=== PATIENT | female | born 1950 | race Hispanic/Latino ===

== ENCOUNTER 2018-04-01 09:25 | Inpatient (IN) | payer MEDICARE ==
[~2018-04-01] VITALS: Ht 152.4 cm; Wt 101.7 kg
[2018-04-01] MEDS ORDERED: SODIUM CHLORIDE 0.9% 1000ML 1,000 ML IV ONE ×2 (09:55→11:30)
[2018-04-01 10:00] LABS: BASOPHILS % (AUTO) 0.1 % (0.0-5.0); HEMATOCRIT 39.2 % (36-48); LYMPHOCYTES % (AUTO) 4.2 % (21.0-51.0); MEAN CORPUSCULAR HEMOGLOBIN 28.9 pg (27.0-33.0); MEAN CORPUSCULAR HGB CONC 33.7 g/dL (32.0-36.0); MEAN CORPUSCULAR VOLUME 85.8 fL (79-99); NEUTROPHILS % (AUTO) 92.7 % (40.0-77.0); PLATELET COUNT (AUTO) 211 K/uL (130-400); RED BLOOD CELL COUNT(AUTO) 4.57 MIL/uL (4.00-5.50); RED CELL DISTRIBUTION WIDTH 14.7 % (11.0-15.5); WHITE BLOOD COUNT (AUTO) 15.9 K/uL (4.8-10.8)
[2018-04-01 10:03] LABS: APPEARANCE,URINE Clear (CLEAR); BILIRUBIN,URINE Small (NEGATIVE); COLOR,URINE Dark Yellow (YELLOW); GLUCOSE, URINE (UA) >=1000 mg/dL (NEGATIVE); KETONES,URINE 40 mg/dL (NEGATIVE); LEUKOCYTE ESTERASE ,URINE Negative (NEGATIVE); NITRATE,URINE Positive (NEGATIVE); OCCULT BLOOD,URINE Negative (NEGATIVE); PROTEIN,URINE Trace (NEGATIVE)
[2018-04-01 10:10] LABS: CREATININE 1.1 mg/dL (0.5-1.5)
[2018-04-01 10:19] LABS: ALBUMIN 3.3 g/dL (3.5-5.0); BILIRUBIN,TOTAL 2.6 mg/dL (0.2-1.0); TOTAL PROTEIN, SERUM 7.9 g/dL (6.0-8.3)
[2018-04-01 10:20] LABS: BACTERIA,URINE Many /HPF (None Seen); SQUAMOUS EPITHELIAL CELL,UR Rare /HPF (0-2); WBC,URINE 0-1 /HPF (0-1)
[2018-04-01] MEDS ORDERED: MORPHINE SULFATE 4 MG/1ML SYG ONE (11:12)
[2018-04-01] MEDS ORDERED: ONDANSETRON HCL 4 MG/2 ML VIAL ONE (11:12)
[2018-04-01] MEDS ORDERED: INSULIN HUMULIN R 100 UNIT/ML 3ML ONE (11:31)
[2018-04-01] MEDS ORDERED: ACETAMINOPHEN 650 MG SUPPOSITORY RC PRN (12:00)
[2018-04-01] MEDS ORDERED: ONDANSETRON HCL 4 MG/2 ML VIAL IVP PRN (12:00)
[2018-04-01] MEDS ORDERED: MORPHINE SULFATE 2 MG/ML 1ML SYG IVP PRN (12:00)
[2018-04-01 12:02] LABS: CHOLESTEROL 148 mg/dL (<200); HDL CHOLESTEROL 29 mg/dL (35-85); LDL DIRECT 38 mg/dL (0-99); TRIGLYCERIDES 82 mg/dL (30-200)
[2018-04-01 12:39] VITALS: BP 163/71
[2018-04-01] MEDS ORDERED: DEXTROSE 5 %-0.45 % NACL 1,000 ML IV SCH (13:00)
[2018-04-01] MEDS ORDERED: INSU200I4 SQ (13:09)
[2018-04-01] MEDS ORDERED: ATOR20TA65 PO (13:09)
[2018-04-01] MEDS ORDERED: INSNOV SQ (13:09)
[2018-04-01] MEDS ORDERED: EXEN2PEN SQ (13:09)
[2018-04-01] MEDS: METOCLOPRAMIDE 10 MG/2 ML VIAL IVP PRN (13:23)
[2018-04-01] MEDS: PROCALAMINE IV SOLUTION 1,000 ML IV SCH (13:40)
[2018-04-01] MEDS ORDERED: DEXTROSE 50%-WATER 50 ML DISP.SYRIN IV PRN (16:15)
[2018-04-01] MEDS ORDERED: GLUCAGON 1MG KIT 1 MG ML IM PRN (16:15)
[2018-04-01] MEDS ORDERED: HYDRALAZINE HCL 20 MG/ML VIAL IV PRN (16:15)
[2018-04-01] MEDS ORDERED: ACETAMINOPHEN 325 MG TAB PO PRN (16:15)
[2018-04-01 16:30] VITALS: BP 150/59
[2018-04-01] MEDS: INSULIN HUMULIN R 100 UNIT/ML 3ML SQ SCH ×3 (16:30→23:30)
[2018-04-01] MEDS: ZOSYN 3.375GM+NS 50ML 50 ML IV SCH ×2 (18:50→23:24)
[2018-04-01] MEDS: PANTOPRAZOLE SODIUM 40 MG TABLET.DR PO SCH (18:51)
[2018-04-01] MEDS: ENOXAPARIN SODIUM 40 MG/0.4 ML SYRINGE SQ SCH (18:51)
[2018-04-01 20:04] VITALS: BP 147/50
[2018-04-02] VITALS (20 sets, daily range): BP systolic 119–155; BP diastolic 50–77
[2018-04-02] MEDS: PROCALAMINE IV SOLUTION 1,000 ML IV SCH (03:13)
[2018-04-02 05:08] LABS: HEMATOCRIT 34.4 % (36-48); MEAN CORPUSCULAR HEMOGLOBIN 28.7 pg (27.0-33.0); MEAN CORPUSCULAR HGB CONC 33.5 g/dL (32.0-36.0); MEAN CORPUSCULAR VOLUME 85.5 fL (79-99); PLATELET COUNT (AUTO) 177 K/uL (130-400); RED BLOOD CELL COUNT(AUTO) 4.02 MIL/uL (4.00-5.50); RED CELL DISTRIBUTION WIDTH 14.3 % (11.0-15.5); WHITE BLOOD COUNT (AUTO) 11.6 K/uL (4.8-10.8)
[2018-04-02 05:17] LABS: BAND NEUTROPHILS % (MANUAL) 9 % (0-2); BASOPHILS % (MANUAL) 3 % (0-2); LYMPHOCYTES % (MANUAL) 6 % (22-44); MONOCYTES % (MANUAL) 7 % (2-9); SEGMENTED NEUTROPHILS % 75 % (40-70)
[2018-04-02 05:18] LABS: MAN.DIFF COMMENT-IMPRESSION MANUAL DIFFERENTIAL; PLATELET MORPHOLOGY COMMENT ADEQUATE
[2018-04-02 05:27] LABS: ALBUMIN 2.6 g/dL (3.5-5.0); BILIRUBIN,DIRECT 0.4 mg/dL (0.0-0.3); BILIRUBIN,TOTAL 1.3 mg/dL (0.2-1.0); CREATININE 0.9 mg/dL (0.5-1.5); POTASSIUM 4.3 mmol/L (3.5-5.1); TOTAL PROTEIN, SERUM 6.7 g/dL (6.0-8.3)
[2018-04-02] MEDS: INSULIN HUMULIN R 100 UNIT/ML 3ML SQ SCH ×4 (07:06→21:25)
[2018-04-02] MEDS: ZOSYN 3.375GM+NS 50ML 50 ML IV SCH ×2 (08:27→17:09)
[2018-04-02] MEDS: ENOXAPARIN SODIUM 40 MG/0.4 ML SYRINGE SQ SCH (08:28)
[2018-04-02] MEDS ORDERED: PROPOFOL 10 MG/ML 20ML VIAL IV ONE (08:49)
[2018-04-02] MEDS: PANTOPRAZOLE SODIUM 40 MG TABLET.DR PO SCH (12:31)
[2018-04-02] MEDS: METOCLOPRAMIDE 10 MG/2 ML VIAL IVP PRN (12:31)
[2018-04-02] MEDS ORDERED: LACTATED RINGERS 1000ML 1,000 ML IV ONE (16:54)
[2018-04-02] MEDS: LACTATED RINGERS 1000ML 1,000 ML IV SCH (21:00)
[2018-04-03] VITALS (12 sets, daily range): BP systolic 132–175; BP diastolic 55–87
[2018-04-03] MEDS: ZOSYN 3.375GM+NS 50ML 50 ML IV SCH ×3 (00:04→16:46)
[2018-04-03 04:47] LABS: HEMATOCRIT 36.2 % (36-48); MEAN CORPUSCULAR HEMOGLOBIN 29.3 pg (27.0-33.0); MEAN CORPUSCULAR VOLUME 86.3 fL (79-99); PLATELET COUNT (AUTO) 150 K/uL (130-400); RED BLOOD CELL COUNT(AUTO) 4.19 MIL/uL (4.00-5.50); RED CELL DISTRIBUTION WIDTH 14.1 % (11.0-15.5); WHITE BLOOD COUNT (AUTO) 9.2 K/uL (4.8-10.8)
[2018-04-03 05:35] LABS: ALBUMIN 2.6 g/dL (3.5-5.0); BILIRUBIN,TOTAL 0.7 mg/dL (0.2-1.0); CREATININE 0.8 mg/dL (0.5-1.5); MAGNESIUM 1.8 mg/dL (1.80-2.40); POTASSIUM 4.4 mmol/L (3.5-5.1); TOTAL PROTEIN, SERUM 6.9 g/dL (6.0-8.3)
[2018-04-03] MEDS: INSULIN HUMULIN R 100 UNIT/ML 3ML SQ SCH ×4 (07:30→21:31)
[2018-04-03] MEDS: PANTOPRAZOLE SODIUM 40 MG TABLET.DR PO SCH (09:00)
[2018-04-03] MEDS: ENOXAPARIN SODIUM 40 MG/0.4 ML SYRINGE SQ SCH (09:00)
[2018-04-03] MEDS: LACTATED RINGERS 1000ML 1,000 ML IV SCH ×3 (10:20→20:31)
[2018-04-04] VITALS (27 sets, daily range): BP systolic 115–167; BP diastolic 51–83
[2018-04-04] MEDS: ZOSYN 3.375GM+NS 50ML 50 ML IV SCH ×4 (00:22→21:19)
[2018-04-04 04:47] LABS: HEMATOCRIT 31.4 % (36-48); MEAN CORPUSCULAR HEMOGLOBIN 28.7 pg (27.0-33.0); MEAN CORPUSCULAR HGB CONC 33.4 g/dL (32.0-36.0); MEAN CORPUSCULAR VOLUME 85.8 fL (79-99); PLATELET COUNT (AUTO) 160 K/uL (130-400); RED BLOOD CELL COUNT(AUTO) 3.66 MIL/uL (4.00-5.50); RED CELL DISTRIBUTION WIDTH 14.1 % (11.0-15.5); WHITE BLOOD COUNT (AUTO) 7.8 K/uL (4.8-10.8)
[2018-04-04 04:59] LABS: ALBUMIN 2.4 g/dL (3.5-5.0); BILIRUBIN,TOTAL 0.5 mg/dL (0.2-1.0); CREATININE 0.7 mg/dL (0.5-1.5); POTASSIUM 3.4 mmol/L (3.5-5.1); TOTAL PROTEIN, SERUM 6.4 g/dL (6.0-8.3)
[2018-04-04] MEDS: INSULIN HUMULIN R 100 UNIT/ML 3ML SQ SCH ×4 (05:56→21:00)
[2018-04-04] MEDS ORDERED: POTASSIUM CHLORIDE 10% ELIXIR 20 MEQ/15 ML UDCUP PO PRN (06:30)
[2018-04-04] MEDS ORDERED: POTASSIUM CHLORIDE 20MEQ/100ML 100 ML IV PRN (06:30)
[2018-04-04] MEDS ORDERED: LIDOCAINE HCL-MPF 1% 2ML VIAL IVP PRN (06:30)
[2018-04-04] MEDS ORDERED: POTASSIUM CHLORIDE 20 MEQ ERTAB PO PRN (06:30)
[2018-04-04] MEDS ORDERED: ONDANSETRON HCL MDV 20ML 2 MG/ML VIAL ONE (07:20)
[2018-04-04] MEDS ORDERED: LIDOCAINE PF 2% 5ML ABBOJECT ONE (07:20)
[2018-04-04] MEDS ORDERED: FENTANYL CITRATE PF 50 MCG/1 ML 2ML VIAL ONE (07:21)
[2018-04-04] MEDS ORDERED: ROCURONIUM BROMIDE 10MG/1ML 5ML VL ONE (07:21)
[2018-04-04] MEDS ORDERED: PROPOFOL 10 MG/ML 20ML VIAL IV ONE (07:22)
[2018-04-04] MEDS ORDERED: MIDAZOLAM HCL 1 MG/ML 2ML VIAL ONE (07:22)
[2018-04-04] MEDS ORDERED: SODIUM CHLORIDE 0.9% 1000ML 1,000 ML IV ONE (07:26)
[2018-04-04] MEDS ORDERED: BUPIVACAINE/PF 0.5% 30ML VIAL ONE (08:27)
[2018-04-04] MEDS ORDERED: ESMOLOL HCL 10 MG/ML 10 ML VIAL ONE (08:47)
[2018-04-04] MEDS ORDERED: KETOROLAC TROMETHAMINE 30MG/ML ONE (08:47)
[2018-04-04] MEDS: PANTOPRAZOLE SODIUM 40 MG TABLET.DR PO SCH (09:00)
[2018-04-04] MEDS: ENOXAPARIN SODIUM 40 MG/0.4 ML SYRINGE SQ SCH (09:00)
[2018-04-04] MEDS ORDERED: MORPHINE SULFATE 4 MG/1ML SYG IM PRN (09:15)
[2018-04-04] MEDS: LACTATED RINGERS 1000ML 1,000 ML IV SCH ×2 (10:39→22:30)
[2018-04-05] VITALS: BP 138/62
[2018-04-05 04:00] VITALS: BP 156/82
[2018-04-05 05:35] LABS: BASOPHILS % (AUTO) 0.5 % (0.0-5.0); EOSINOPHILS % (AUTO) 2.3 % (0.0-8.0); HEMATOCRIT 33.2 % (36-48); MEAN CORPUSCULAR HEMOGLOBIN 29.8 pg (27.0-33.0); MEAN CORPUSCULAR HGB CONC 34.5 g/dL (32.0-36.0); MEAN CORPUSCULAR VOLUME 86.4 fL (79-99); MONOCYTES % (AUTO) 5.4 % (3.0-13.0); NEUTROPHILS % (AUTO) 61.8 % (40.0-77.0); NUCLEATED RED BLOOD CELLS 0.1 % (0.0-0.19); PLATELET COUNT (AUTO) 181 K/uL (130-400); RED BLOOD CELL COUNT(AUTO) 3.85 MIL/uL (4.00-5.50); RED CELL DISTRIBUTION WIDTH 14.1 % (11.0-15.5); WHITE BLOOD COUNT (AUTO) 6.9 K/uL (4.8-10.8)
[2018-04-05 05:49] LABS: ALBUMIN 2.4 g/dL (3.5-5.0); BILIRUBIN,TOTAL 0.5 mg/dL (0.2-1.0); CREATININE 0.8 mg/dL (0.5-1.5); TOTAL PROTEIN, SERUM 6.5 g/dL (6.0-8.3)
[2018-04-05] MEDS: ZOSYN 3.375GM+NS 50ML 50 ML IV SCH ×2 (05:49→12:36)
[2018-04-05] MEDS: INSULIN HUMULIN R 100 UNIT/ML 3ML SQ SCH ×2 (06:31→12:45)
[2018-04-05 08:00] VITALS: BP 152/47
[2018-04-05] MEDS: PANTOPRAZOLE SODIUM 40 MG TABLET.DR PO SCH (08:34)
[2018-04-05] MEDS: ENOXAPARIN SODIUM 40 MG/0.4 ML SYRINGE SQ SCH (08:35)
[2018-04-05 12:00] VITALS: BP 170/62
[2018-04-05] MEDS ORDERED: TYL3 PO (15:08)
== END 2018-04-05 18:05 | disposition home or self-care (01) | DRG 418 ==
LOC: EDH 09:25 → EDHIP 11:37 → 4BH 11:52 → 3BH 04-04 17:24
PROVIDERS: ADMIT Internal Medicine Nephrology; ATTEND Internal Medicine Nephrology
PROC: 0DJ08ZZ Inspection of Upper Intestinal Tract, Via Natural or Artificial Opening Endoscopic (ICD-10-PCS; 2018-04-02)
PROC: 5A09357 Assistance with Respiratory Ventilation, Less than 24 Consecutive Hours, Continuous Positive Airway Pressure (ICD-10-PCS; 2018-04-02)
PROC: 0FT44ZZ Resection of Gallbladder, Percutaneous Endoscopic Approach (ICD-10-PCS; principal; 2018-04-04 08:09)
DX: K85.10 Biliary acute pancreatitis without necrosis or infection (principal); N39.0 Urinary tract infection, site not specified; E44.0 Moderate protein-calorie malnutrition; Z68.41 Body mass index [BMI] 40.0-44.9, adult; E11.9 Type 2 diabetes mellitus without complications; E66.01 Morbid (severe) obesity due to excess calories; K80.20 Calculus of gallbladder without cholecystitis without obstruction; E78.5 Hyperlipidemia, unspecified; G47.33 Obstructive sleep apnea (adult) (pediatric); I10 Essential (primary) hypertension; Z82.49 Family history of ischemic heart disease and other diseases of the circulatory system
CPT/HCPCS: 36415; 43231; 72100; 74176; 76705; 80048; 80053; 80061; 80076; 81001; 82150; 82948; 83690; 83735; 85025; 85027; 87088; 87186; 88304; J1650; J1815; J1885; J2001; J2250; J2270; J2405; J2543; J2704; J2765; J3010; J3480; J3490; J7030; J7042; J7120

== ENCOUNTER 2022-08-24 08:23 | Emergency (ER) | payer OTHER, MEDICARE ==
[~2022-08-24] VITALS: Ht 149.9 cm; Wt 93.9 kg
[~2022-08-24 08:23] MED LIST: ATOR20TA65 PO; EXEN2PEN SQ; INSNOV SQ; INSU200I4 SQ; TYL3 PO
[2022-08-24] MEDS ORDERED: IBUPROFEN 800 MG TAB PO SCH (09:30)
[2022-08-24 09:33] LABS: BASOPHILS % (AUTO) 0.7 % (0.0-5.0); EOSINOPHILS % (AUTO) 1.6 % (0.0-8.0); HEMATOCRIT 36.2 % (36-48); LYMPHOCYTES % (AUTO) 22.5 % (21.0-51.0); MEAN CORPUSCULAR HEMOGLOBIN 27.7 pg (27.0-33.0); MEAN CORPUSCULAR VOLUME 86.4 fL (79-99); MONOCYTES % (AUTO) 6.9 % (3.0-13.0); PLATELET COUNT (AUTO) 275 K/uL (130-400); RED BLOOD CELL COUNT(AUTO) 4.19 MIL/uL (4.00-5.50); RED CELL DISTRIBUTION WIDTH 12.8 % (11.0-15.5); WHITE BLOOD COUNT (AUTO) 9.9 K/uL (4.8-10.8)
[2022-08-24 09:34] LABS: APPEARANCE,URINE CLOUDY (CLEAR); BILIRUBIN,URINE NEGATIVE (NEGATIVE); COLOR,URINE YELLOW (YELLOW); GLUCOSE, URINE (UA) NEGATIVE (NEGATIVE); KETONES,URINE NEGATIVE (NEGATIVE); LEUKOCYTE ESTERASE ,URINE 500 Leu/uL (NEGATIVE); NITRATE,URINE 2+ (NEGATIVE); OCCULT BLOOD,URINE NEGATIVE (NEGATIVE); PH,URINE 5.5 (5.0-8.0); PROTEIN,URINE 20 mg/dL (NEGATIVE); UROBILINOGEN,URINE 0.2 mg/dL (0.2-1.0)
[2022-08-24 09:58] LABS: CREATININE 1.1 mg/dL (0.5-1.5)
[2022-08-24 10:03] LABS: ALBUMIN 2.5 g/dL (3.5-5.0); TOTAL PROTEIN, SERUM 7.7 g/dL (6.0-8.3)
[2022-08-24] MEDS ORDERED: IBUPROFEN 800 MG TAB ONE (10:16)
[2022-08-24 10:41] LABS: BACTERIA,URINE MANY /HPF (None Seen); MUCUS,URINE RARE LPF (None Seen); SQUAMOUS EPITHELIAL CELL,UR MOD /HPF (0-2); WBC,URINE 51-100 /HPF (0-1)
[2022-08-24 11:00] VITALS: BP 131/59
[2022-08-24] MEDS ORDERED: MACR100 PO (11:05)
[2022-08-24] MEDS ORDERED: NEOM28.36 TP (11:05)
[2022-08-24] MEDS ORDERED: FLUC150T PO (11:05)
== END 2022-08-24 11:40 | disposition home or self-care (01) ==
LOC: EDH 08:23
DX: S00.31XA Abrasion of nose, initial encounter (principal); J06.9 Acute upper respiratory infection, unspecified; N39.0 Urinary tract infection, site not specified; L30.9 Dermatitis, unspecified; B37.9 Candidiasis, unspecified; Z20.822 Contact with and (suspected) exposure to COVID-19; E11.9 Type 2 diabetes mellitus without complications; E78.00 Pure hypercholesterolemia, unspecified; I10 Essential (primary) hypertension; Z90.49 Acquired absence of other specified parts of digestive tract; Z98.890 Other specified postprocedural states; Z79.899 Other long term (current) drug therapy; Z79.4 Long term (current) use of insulin; X58.XXXA Exposure to other specified factors, initial encounter; Y93.89 Activity, other specified; Y92.89 Other specified places as the place of occurrence of the external cause; Y99.8 Other external cause status
CPT/HCPCS: 99283; 87635; 80053; 85025; 87077; 87088; 87186; 87804 ×2; 81001; 36415; C9803

== ENCOUNTER 2024-09-08 22:10 | Emergency (ER) | payer OTHER, MEDICARE ==
[~2024-09-08] VITALS: Ht 149.9 cm; Wt 103.0 kg
[~2024-09-08 22:10] MED LIST changes: +FLUC150T PO; +MACR100 PO; +NEOM28.36 TP
--- NOTE | 2024-09-08 23:13 | HMCIMG ---
CT LUMBAR SPINE W/O CONTRAST HISTORY: Status post fall COMPARISON: None TECHNIQUE: Multiple sequential axial images of the lumbar spine were obtained including post processing sagittal and coronal reconstruction images. Patient was not given contrast through intravenous route. FINDINGS: There is grade 1 anterolisthesis at the L5-S1 level. There are bilateral L5 pars defects. There are degenerative changes with lumbar spine spondylosis. There is no loss of vertebral height. Evaluation for disc and cord pathology is limited with CT study. No evidence of fracture or dislocation is seen. Bilateral renal vascular calcifications are seen. IMPRESSION: 1. No fracture is seen. DJD with lumbar spine spondylosis. CT was performed with one or more following dose reduction techniques: automated exposure control, adjustment of the mA and kv according to patient's size, or use of a iterative reconstruction technique.
--- NOTE | 2024-09-08 23:17 | ERN ---
ED Note History of Present Illness Stated Complaint: BACK PAIN Chief Complaint: Mechanical Fall Time Seen by MD: 22:43 Time Seen by Midlevel: 22:43 Dictation: The patient is a 73-year-old female with a history of diabetes, hypertension who presents to the emergency department with low back pain, bilateral knees after she slipped from the bed this morning around 10:00 a.m.. Patient reports she landed on her knees. Denies any head trauma, LOC, nausea or vomiting, use of blood thinners. Patient denies any other injuries. Denies any hip pain, chest pain, abdominal pain. Denies any urinary or fecal incontinence. Denies any numbness to lower extremities. Allergies: Coded Allergies: No Known Drug Allergies (Verified Allergy, Unknown, 04/01/18) Home Meds Active Scripts Nitrofurantoin/Nitrofuran Mac (Macrobid) 100 Mg Cap, 1 CAP PO BID for 7 Days, #14 CAP 0 Refills Prov:MICHAEL MAYS MD 08/24/22 Fluconazole (Diflucan) 150 Mg Tablet, 150 MG PO ONCE, #2 TAB Take 1 pill today and repeated in 1 week Prov:MICHAEL MAYS MD 08/24/22 Neomy Sulf/Bacitrac Zn/Poly (Neosporin Ointment) 28.3 Gm Oint...g., 28.3 GM TP TID, #30 GM Prov:MICHAEL MAYS MD 08/24/22 Acetaminophen with Codeine (Tylenol with Codeine #3) 1 Tab Tab, 1 TAB PO [id number] for 7 Days, #28 TAB Prov:NENA HOOVER 04/05/18 Reported Medications Insulin Aspart (Novolog) 100 Units/Ml Inj, 18 UNITS SQ TIDAC, ML 04/01/18 Insulin Degludec (Tresiba Flextouch U-200) 200 Unit/1 Ml Insuln.pen, 34 UNIT SQ HS, SYRINGE 04/01/18 Exenatide Microspheres (Bydureon Pen) 2 Mg/0.65 Ml Pen.injctr, 2 MG SQ AD 04/01/18 Atorvastatin Calcium (Atorvastatin Calcium) 20 Mg Tablet, 20 MG PO DAILY, TAB 04/01/18 Past Medical History Past Medical History: Diabetes-Type II, High Cholesterol, Hypertension Surgical History: Other Surgical History Other: I&D SPIDER BITE Family History: HTN Social History: Negative, Lives with family RN Note Reviewed/Agreed w/PFSH: Yes Review of System Dictation Constitutional: Negative for fever,chills, and weight loss Eyes: Negative for injury, pain,redness, and discharge ENT: Negative for injury,pain or swelling Cardiovascular: Negative for chest pain, palpitations, and edema Respiratory: Negative for shortness of breath, cough, and wheezing, Abdomen/GI: Negative for abdominal pain, nausea, vomiting, diarrhea, and constipation Back: Negative for injury and pain positive for low back pain : Negative for injury, bleeding and discharge MS/Extremity: Negative for deformity positive for bilateral knee pain injury, pain Skin: Negative for rash, and discoloration Neuro: Negative for headache, weakness, numbness, tingling, and seizure Psych: Negative for suicide ideation, homicidal ideation, and hallucinations Initial Vital Sign VS Vital Signs Date Time Temp Pulse Resp B/P (MAP) Pulse Ox O2 Delivery O2 Flow Rate FiO2 09/08/24 22:28 97.5 69 20 127/52 98 Room Air Physical Exam Dictation Vital Signs reviewed General Appearance: Alert, oriented x 3, no acute distress, well developed, nourished. Head and Face: non-traumatic. Eyes: PERRL, pink conjunctivas, eyelid no trauma, anterior chamber with arcus senilis. Ears: Pinnas intact and no signs of trauma or erythema ear canals clear and no discharge TM no erythema Nose: No discharge, no bleeding. Oropharynx: Mouth normal, tongue pink. pharynx clear,no erythema, tonsils no exudates, no abscesses noted, mucous membrane moist Neck: Supple, non-tender, no thyromegaly, no masses, no JVD, no bruits Breast:Deferred Chest:No tenderness, no crepitus, no paradoxical movement, no retractions Lungs:Clear, well-ventilated, symmetric, no rales, no wheezing, no rhonchi, no stridor, good breath sounds bilaterally Heart: Regular rate, regular rhythm, no murmur, no gallops Vascular: 1+ bilateral peripheral edema, posterior tibialis 2+ bilaterally, Abdomen: Soft, positive bowel sounds, nondistended, no guarding, nontender, no rebound, no masses no hepatomegaly, no splenomegaly, no Stringer's sign, no hernias. Rectal: Deferred Genital: Deferred Neurological: Normal speech, motor function intact, sensory function intact Musculoskeletal: Neck nontender, full range of motion, back nontender, full range of motion, Extremities: nontender, full range of motion , knee tenderness to palpation, full range of motion, ambulatory, cap refill less than 3 seconds Skin: Color pink, dry, no turgor, no rash, no lacerations, no abrasions, small bruising noted to left knee Lymphatic: Deferred Results (Laboratory/Radiology) Laboratory/Radiology REASON: fall ORDERING PHYSICIAN: KAYLA ESCOBAR OUTPATIENT INTERVIEWING CLERK PROCEDURE: KNEE 3V RT - KNEE 3VWS RT KNEE 3VWS RT HISTORY: Status post fall COMPARISON: None TECHNIQUE: 3 images of right knee were obtained. FINDINGS: There is no acute displaced fracture or dislocation. Vascular calcifications are seen. Degenerative changes are seen. IMPRESSION: 1. Findings as described above. REASON: fall ORDERING PHYSICIAN: KAYLA ESCOBAR OUTPATIENT INTERVIEWING CLERK PROCEDURE: KNEE 3V LT - KNEE 3VWS LT KNEE 3VWS LT HISTORY: Status post fall COMPARISON: None TECHNIQUE: 3 images of left knee were obtained. FINDINGS: There is no acute displaced fracture or dislocation. Degenerative changes are seen. IMPRESSION: 1. Findings as described above. REASON: fall, pain ORDERING PHYSICIAN: KAYLA ESCOBAR OUTPATIENT INTERVIEWING CLERK PROCEDURE: L SPIN WO - CT LUMBAR SPINE W/O CONTRAST CT LUMBAR SPINE W/O CONTRAST HISTORY: Status post fall COMPARISON: None TECHNIQUE: Multiple sequential axial images of the lumbar spine were obtained including post processing sagittal and coronal reconstruction images. Patient was not given contrast through intravenous route. FINDINGS: There is grade 1 anterolisthesis at the L5-S1 level. There are bilateral L5 pars defects. There are degenerative changes with lumbar spine spondylosis. There is no loss of vertebral height. Evaluation for disc and cord pathology is limited with CT study. No evidence of fracture or dislocation is seen. Bilateral renal vascular calcifications are seen. IMPRESSION: 1. No fracture is seen. DJD with lumbar spine spondylosis. CT was performed with one or more following dose reduction techniques: automated exposure control, adjustment of the mA and kv according to patient's size, or use of a iterative reconstruction technique. Labs Reviewed?: Yes ED Course ED Course Orders Procedure Category Date Status Time Knee 3vws Rt RAD 09/08/24 Resulted 22:46 Knee 3vws Lt RAD 09/08/24 Resulted 22:46 Ct Lumbar Spine W/O CT 09/08/24 Resulted Contrast 22:46 Acetaminophen 325 Tab PHA 09/08/24 Complete (Tylenol 325mg Tab 23:00 Current Medications Medications (Trade) Dose Ordered Sig/Haja Route PRN Reason Start Time Stop Time Status Last Admin Dose Admin Acetaminophen (TYLenol 325MG TAB) 650 mg ONCE ONCE PO 09/08/24 23:00 09/08/24 23:01 DC Vital Signs Date Time Temp Pulse Resp B/P (MAP) Pulse Ox O2 Delivery O2 Flow Rate FiO2 09/08/24 22:28 97.5 69 20 127/52 98 Room Air Medical Decision Making MDM The patient is a 73-year-old female with a history of diabetes, hypertension who presents to the emergency department with low back pain, bilateral knees after she slipped from the bed this morning around 10:00 a.m.. Patient reports she landed on her knees. Denies any head trauma, LOC, nausea or vomiting, use of blood thinners. Patient denies any other injuries. Denies any hip pain, chest pain, abdominal pain. Denies any urinary or fecal incontinence. Denies any numbness to lower extremities. X-ray showed no acute fractures or dislocation. Patient continues in no acute distress, ambulatory. Will be discharged to follow up with primary doctor. Differential diagnosis: Lumbar fracture, back contusion, knee sprain, patellar fracture Need for hospitalization: Patient does not meet criteria for hospitalization. There are no social concerns with this patient. DX & DISP Disposition: Discharge Departure Impression: Primary Impression: Fall Additional Impressions: Contusion of left knee, Contusion of knee, right, Low back pain, DJD (degenerative joint disease), lumbar Condition: Stable Additional Instructions: Please follow up with PCP in 1-2 days. If symptoms continue or worsen she might need further imaging. Please return to ER if symptoms worsen. FOLLOW-UP WITH PRIMARY CARE PROVIDER IN 1 TO 2 DAYS. TAKE MEDICATIONS DIRECTED HERE IN THE EMERGENCY ROOM. OKAY TO CONTINUE HOME MEDICATIONS UNLESS OTHERWISE DISCUSSED DURING YOUR VISIT IN THE EMERGENCY ROOM TODAY. RETURN TO YOUR NEAREST EMERGENCY ROOM IF SYMPTOMS WORSEN OR IF THERE IS NO IMPROVEMENT. CALL 911 IF YOU NEED IMMEDIATE ASSISTANCE. TAKE TYLENOL [id number] NEEDED AND IF NO CONTRAINDICATIONS ARE PRESENT. INCREASE ORAL HYDRATION. A WOUND CULTURE OR URINE CULTURE WAS ORDERED HERE IN THE EMERGENCY ROOM DEPARTMENT PLEASE FOLLOW-UP WITH PRIMARY CARE PROVIDER AND ADVISE THEM TO GET REPEAT PORTS FROM OUR FACILITY. IF YOU HAD ANY DIANE WRAP/SPLINTS THAT WERE APPLIED HERE, PLEASE DO NOT REMOVE THEM UNTIL YOU SEE YOUR PRIMARY CARE OR SPECIALTY. Referrals: SELF,REFERRAL (PCP) Time of Disposition: 00:01 I have reviewed the case, and I agree with, Diagnosis and Plan KAYLA ESCOBARP Sep 08, 2024 23:17
--- NOTE | 2024-09-08 23:37 | HMCIMG ---
KNEE 3VWS LT HISTORY: Status post fall COMPARISON: None TECHNIQUE: 3 images of left knee were obtained. FINDINGS: There is no acute displaced fracture or dislocation. Degenerative changes are seen. IMPRESSION: 1. Findings as described above.
--- NOTE | 2024-09-08 23:38 | HMCIMG ---
KNEE 3VWS RT HISTORY: Status post fall COMPARISON: None TECHNIQUE: 3 images of right knee were obtained. FINDINGS: There is no acute displaced fracture or dislocation. Vascular calcifications are seen. Degenerative changes are seen. IMPRESSION: 1. Findings as described above.
[2024-09-09] MEDS: acetaMINOPHEN 325 MG TAB PO ONE (00:10)
[2024-09-09 00:21] VITALS: BP 122/60; PULSE 70; RESP 16; TEMP 98; O2SAT 99
== END 2024-09-09 00:25 | disposition home or self-care (01) ==
LOC: EDH 22:10
DX: S80.01XA Contusion of right knee, initial encounter (principal); S80.02XA Contusion of left knee, initial encounter; M54.50 Low back pain, unspecified; E11.9 Type 2 diabetes mellitus without complications; E78.00 Pure hypercholesterolemia, unspecified; I10 Essential (primary) hypertension; M47.816 Spondylosis without myelopathy or radiculopathy, lumbar region; Z79.4 Long term (current) use of insulin; Z79.899 Other long term (current) drug therapy; W01.0XXA Fall on same level from slipping, tripping and stumbling without subsequent striking against object, initial encounter; Y93.89 Activity, other specified; Y92.89 Other specified places as the place of occurrence of the external cause; Y99.8 Other external cause status
CPT/HCPCS: 72131; 73562; 99284

== ENCOUNTER 2024-11-28 17:48 | Emergency (ER) | payer OTHER, MEDICARE ==
[~2024-11-28] VITALS: Ht 144.8 cm; Wt 97.5 kg
--- NOTE | 2024-11-28 17:59 | ERN ---
ED Note History of Present Illness Stated Complaint: SORE THROAT,CONGESTION,MULTIPLE COMPLAINTS Chief Complaint: Congestion Time Seen by MD: 17:49 Time Seen by Midlevel: 17:49 Dictation: 74-year-old female who presents ED for evaluation of sore throat and cough with a past two days. Per daughter she reports family members at home recently tested positive for strep pharyngitis and are all antibiotics so she wanted to get her evaluated as well. Denies fever, chest pain, shortness of breath, abdominal pain, nausea, vomiting, diarrhea Allergies: Coded Allergies: No Known Drug Allergies (Verified Allergy, Unknown, 04/01/18) Home Meds Active Scripts Nitrofurantoin/Nitrofuran Mac (Macrobid) 100 Mg Cap, 1 CAP PO BID for 7 Days, #14 CAP 0 Refills Prov:MICHAEL MAYS MD 08/24/22 Fluconazole (Diflucan) 150 Mg Tablet, 150 MG PO ONCE, #2 TAB Take 1 pill today and repeated in 1 week Prov:MICHAEL MAYS MD 08/24/22 Neomy Sulf/Bacitrac Zn/Poly (Neosporin Ointment) 28.3 Gm Oint...g., 28.3 GM TP TID, #30 GM Prov:MICHAEL MAYS MD 08/24/22 Acetaminophen with Codeine (Tylenol with Codeine #3) 1 Tab Tab, 1 TAB PO [id number] for 7 Days, #28 TAB Prov:NENA HOOVER AGPCNP 04/05/18 Reported Medications Insulin Aspart (Novolog) 100 Units/Ml Inj, 18 UNITS SQ TIDAC, ML 04/01/18 Insulin Degludec (Tresiba Flextouch U-200) 200 Unit/1 Ml Insuln.pen, 34 UNIT SQ HS, SYRINGE 04/01/18 Exenatide Microspheres (Bydureon Pen) 2 Mg/0.65 Ml Pen.injctr, 2 MG SQ AD 04/01/18 Atorvastatin Calcium (Atorvastatin Calcium) 20 Mg Tablet, 20 MG PO DAILY, TAB 04/01/18 Past Medical History Past Medical History: Diabetes-Type II, High Cholesterol, Hypertension Surgical History: Other Surgical History Other: I&D SPIDER BITE Family History: HTN Social History: Negative, Lives with family RN Note Reviewed/Agreed w/PFSH: Yes Review of System Dictation Constitutional: Negative for fever,chills, and weight loss Eyes: Negative for injury, pain,redness, and discharge ENT: Negative for injury,pain or swelling Cardiovascular: Negative for chest pain, palpitations, and edema Respiratory: Negative for shortness of breath, and wheezing, Abdomen/GI: Negative for abdominal pain, nausea, vomiting, diarrhea, and constipation Back: Negative for injury and pain : Negative for injury, bleeding and discharge MS/Extremity: Negative for injury and deformity Skin: Negative for rash, and discoloration Neuro: Negative for headache, weakness, numbness, tingling, and seizure Psych: Negative for suicide ideation, homicidal ideation, and hallucinations Review of Systems: was completed Initial Vital Sign VS Vital Signs Date Time Temp Pulse Resp B/P (MAP) Pulse Ox O2 Delivery O2 Flow Rate FiO2 11/28/24 17:56 98.8 85 20 137/76 96 Room Air 0 Physical Exam Dictation General: awake, alert, NAD Head/Face: Normocephalic, atraumatic Eyes: PERRL, EOMI, vision at baseline ENT: TMs clear, mild posterior pharynx erythema, uvula midline. Neck: Trachea midline, supple, no nuchal rigidity Cardiovascular: RRR, normal S1/S2, No MRGs, no JVD Respiratory: CTAB, no respiratory distress, No rales or wheezes Abdomen: Soft, non-tender, non-distended, normal bowel sounds, no guarding or rebound. Skin: Warm, dry, normal turgor, no rash MS/Extremity: Pulses equal, no cyanosis, neurovascular intact, FROM Neuro: COAx4, GCS 15, strength 5/5, CN 2-12 intact, normal cerebellar exam, normal gait, Psych: Normal behavior, mood, and affect normal Results (Laboratory/Radiology) Laboratory/Radiology Laboratory Tests Test 11/28/24 17:58 Influenza Type A Antigen Negative For Type A Influenza Type B Antigen Negative For Type B SARS-CoV-2 Antigen (Rapid) PRESUMPTIVE NEGATIVE Group A Streptococcus Rapid negative (NEGATIVE) Labs Reviewed?: Yes ED Course ED Course Orders Procedure Category Date Status Time Covid19 (Sars Antigen LAB 11/28/24 Complete Rapid) 17:54 Influenza Type A & B, LAB 11/28/24 Complete Rapid 17:54 Rapid (Group A Strep) LAB 11/28/24 Complete 17:54 Vital Signs Date Time Temp Pulse Resp B/P (MAP) Pulse Ox O2 Delivery O2 Flow Rate FiO2 11/28/24 17:56 98.8 85 20 137/76 96 Room Air 0 Medical Decision Making MDM MDM: Differential diagnosis: Viral URI, influenza, COVID, strep pharyngitis Need for hospitalization: Patient does meet criteria for hospitalization. Need for emergency major/minor surgery: No I independently interpreted the test that were performed, results were reviewed by me and considered findings on radiology if ordered. Medical management and examination interpretation discussions were had by me with other qualified healthcare professionals as indicated for the patient's care. Patient came in with flu-like symptoms and upper respiratory infection. Patient having cough, congestion, sore throat for the past two days. Apparently one of her grandchildren tested positive for strep pharyngitis and the media traffic manager prescribed antibiotics to all of the kids as well as the mother. Patient was afebrile, nonseptic appearing. Lungs are clear to auscultation no wheezing, rales, or rhonchi. Patient denied any acute respiratory distress. Vital signs were stable. Swabs for COVID, flu, strep are negative. No indication for chest x-ray at this time as lungs are clear and symptoms started two days ago. Most likely viral URI. Patient and daughter were educated on symptomatic treatment and return precautions. Recommended to follow up with PCP in 1-2 days. Patient and daughter verbalized understanding, agreed with plan, and all questions were answered at this time. DX & DISP Disposition: Discharge Departure Impression: Primary Impression: Viral URI with cough Condition: Stable Scripts Benzonatate (Tessalon Perles) 100 Mg Cap 100 MG PO TID for cough, #30 CAP 0 Refills Prov: SMITH CEE 11/28/24 Acetaminophen (Acetaminophen) 500 Mg Tablet 1 TAB PO [id number] PRN for pain or fever for 15 Days, #60 TAB 0 Refills Prov: SMITH CEE 11/28/24 Additional Instructions: DISCHARGE HOME. REST. FOLLOW UP WITH PRIMARY CARE IN 24 HOURS. RETURN TO THE ER FOR ANY ACUTE CHANGE. PATIENT WAS ALSO ADVISED TO FOLLOW-UP WITH PRIMARY CARE PHYSICIAN IN 1 TO 2 DAYS FOR CONTINUED MONITORING. ALL INSTRUCTIONS WERE GIVEN TO LAYMANS TERM AND PATIENT AGREEABLE TO DISCHARGE AND PROPER FOLLOW-UP. Referrals: NONE (PCP) I have reviewed the case, and I agree with, Diagnosis and Plan SMITH CEE Nov 28, 2024 17:59
[2024-11-28 18:26] LABS: RAPID GROUP A STREP negative (NEGATIVE)
[2024-11-28 18:36] LABS: COVID19 (SARS ANTIGEN RAPID) PRESUMPTIVE NEGATIVE (NEGATIVE); INFLUENZA TYPE A Negative For Type A (NEGATIVE); INFLUENZA TYPE B Negative For Type B (NEGATIVE)
[2024-11-28] MEDS ORDERED: ACET-66 PO (18:47)
[2024-11-28] MEDS ORDERED: BENZ-39 PO (18:47)
[2024-11-28 18:59] VITALS: BP 132/88; PULSE 66; RESP 20; TEMP 98.6; O2SAT 100
== END 2024-11-28 19:03 | disposition home or self-care (01) ==
LOC: EDH 17:48
DX: J06.9 Acute upper respiratory infection, unspecified (principal); B97.89 Other viral agents as the cause of diseases classified elsewhere; E11.9 Type 2 diabetes mellitus without complications; E78.00 Pure hypercholesterolemia, unspecified; I10 Essential (primary) hypertension; Z20.822 Contact with and (suspected) exposure to COVID-19; Z79.4 Long term (current) use of insulin; Z79.899 Other long term (current) drug therapy
CPT/HCPCS: 87426; 87804; 87880; 99283

== ENCOUNTER 2024-12-07 00:26 | Emergency (ER) | payer OTHER, MEDICARE ==
[~2024-12-07] VITALS: Ht 144.8 cm; Wt 99.8 kg
[~2024-12-07 00:26] MED LIST changes: +ACET-66 PO; +BENZ-39 PO
[2024-12-07 00:48] LABS: BASOPHILS # (AUTO) 0.07 K/uL (0.00-0.20); BASOPHILS % (AUTO) 0.8 % (0.0-5.0); EOSINOPHILS # (AUTO) 0.31 K/uL (0.00-0.70); EOSINOPHILS % (AUTO) 3.3 % (0.0-8.0); HEMATOCRIT 38.2 % (36-48); IMMATURE GRANULOCYTE ABSOLUTE 0.03 K/uL (0-1); LYMPHOCYTES # (AUTO) 3.5 K/uL (1.0-4.8); LYMPHOCYTES % (AUTO) 37.2 % (21.0-51.0); MEAN CORPUSCULAR HEMOGLOBIN 28.1 pg (27.0-33.0); MEAN CORPUSCULAR HGB CONC 31.9 g/dL (32.0-36.0); MONOCYTES # (AUTO) 0.6 K/uL (0.1-1.0); MONOCYTES % (AUTO) 6.1 % (3.0-13.0); NEUTROPHILS # (AUTO) 4.9 K/uL (1.8-7.7); NEUTROPHILS % (AUTO) 52.3 % (40.0-77.0); PLATELET COUNT (AUTO) 231 K/uL (130-400); RED BLOOD CELL COUNT(AUTO) 4.34 MIL/uL (4.00-5.50); RED CELL DISTRIBUTION WIDTH 13.6 % (11.0-15.5); WHITE BLOOD COUNT (AUTO) 9.3 K/uL (4.8-10.8)
[2024-12-07 00:56] LABS: CARBON DIOXIDE 33 mmol/L (21-32); CHLORIDE 101 mmol/L (101-111); CREATININE 0.9 mg/dL (0.5-1.0); GLOMERULAR FILTR. RATE CALC 67 mL/min (>90); GLUCOSE,RANDOM 169 mg/dL (70-105); POTASSIUM 5.6 mmol/L (3.5-5.1); SODIUM SERUM 138 mmol/L (136-145); UREA NITROGEN, BLOOD 21 mg/dL (7-18)
[2024-12-07 01:04] LABS: CREATINE KINASE, TOTAL 174 U/L (21-232)
[2024-12-07 01:16] LABS: B-TYPE NATRIURETIC PEPTIDE 90 pg/mL (0-100)
--- NOTE | 2024-12-07 01:52 | ERN ---
General Chief Complaint: Chest Pain Stated Complaint: CHEST PAIN Time Seen by MD: 01:07 Source: patient, family History of Present Illness Initial Comments Been it was a 74-year-old female with past medical history of diabetes and hypertension. She was seen 2-3 days ago and was diagnosed with a COVID infection and is on Paxlovid and has a productive cough with white sputum. No subjective fevers. No sinus pain no ear pain. Earlier today she started complaining of severe chest pain on her left anterior chest wall inframammary and also just below her clavicles. No complaints of shortness of breath. No nausea no vomiting. Timing/Duration: 1-3 hours Severity: moderate Associated Symptoms: chest pain, cough Allergies: Coded Allergies: No Known Drug Allergies (Verified Allergy, Unknown, 04/01/18) Home Meds Active Scripts Benzonatate (Tessalon Perles) 100 Mg Cap, 100 MG PO TID for cough, #30 CAP 0 Refills Prov:SMITH CEE 11/28/24 Acetaminophen (Acetaminophen) 500 Mg Tablet, 1 TAB PO Q6HPRN PRN for pain or fever for 15 Days, #60 TAB 0 Refills Prov:SMITH CEE 11/28/24 Nitrofurantoin/Nitrofuran Mac (Macrobid) 100 Mg Cap, 1 CAP PO BID for 7 Days, #14 CAP 0 Refills Prov:MICHAEL MAYS MD 08/24/22 Fluconazole (Diflucan) 150 Mg Tablet, 150 MG PO ONCE, #2 TAB Take 1 pill today and repeated in 1 week Prov:MICHAEL MAYS MD 08/24/22 Neomy Sulf/Bacitrac Zn/Poly (Neosporin Ointment) 28.3 Gm Oint...g., 28.3 GM TP TID, #30 GM Prov:MICHAEL MAYS MD 08/24/22 Acetaminophen with Codeine (Tylenol with Codeine #3) 1 Tab Tab, 1 TAB PO [id number] for 7 Days, #28 TAB Prov:NENA HOOVER AGPCNP 04/05/18 Reported Medications Insulin Aspart (Novolog) 100 Units/Ml Inj, 18 UNITS SQ TIDAC, ML 04/01/18 Insulin Degludec (Tresiba Flextouch U-200) 200 Unit/1 Ml Insuln.pen, 34 UNIT SQ HS, SYRINGE 04/01/18 Exenatide Microspheres (Bydureon Pen) 2 Mg/0.65 Ml Pen.injctr, 2 MG SQ AD 04/01/18 Atorvastatin Calcium (Atorvastatin Calcium) 20 Mg Tablet, 20 MG PO DAILY, TAB 04/01/18 Past Medical History Past Medical History: Diabetes-Type II, Hypertension Medical History Other: Diagnosed with COVID three days ago Past Surgical History: None Surgical History Other: I&D SPIDER BITE Family History Family History: HTN Social History Social History: Negative, Lives with family Cardiovascular: (+) chest pain Physical Exam General Appearance: (+) no apparent distress Orientation: (+) alert, (+) oriented x 3 Head/Face Trauma: No Eye: bilateral eye normal inspection, bilateral eye PERRL, bilateral eye EOMI Ear, Nose, Throat: (+) hearing grossly normal, (+) normal ENT inspection, (+) moist mucous membraine Neck: (+) normal inspection, (+) supple, (+) full range of motion, (+) no JVD, (+) non-tender Respiratory: (+) lungs clear, (+) well ventilated Heart: (+) regular, (+) no gallop Vascular: (+) edema Vascular Comment Bilateral pitting edema anterior legs Back: (+) normal inspection, (+) no CVA tenderness, (+) no vertebral tenderness Extremities: (+) normal range of motion Neurologic/Psychiatric: (+) normal speech Skin: (+) normal color, (+) warm/dry Results Laboratory and Microbiology Lab and Micro Result Laboratory Tests Test 12/07/24 00:33 12/07/24 01:30 12/07/24 02:25 12/07/24 03:56 White Blood Count 9.3 K/uL (4.8-10.8) Red Blood Count 4.34 MIL/uL (4.00-5.50) Hemoglobin 12.2 g/dL (12.0-16.0) Hematocrit 38.2 % (36-48) Mean Corpuscular Volume 88.0 fL (79-99) Mean Corpuscular Hemoglobin 28.1 pg (27.0-33.0) Mean Corpuscular Hemoglobin Concent 31.9 g/dL (32.0-36.0) L Red Cell Distribution Width 13.6 % (11.0-15.5) Platelet Count 231 K/uL (130-400) Mean Platelet Volume 11.8 fL (7.5-10.5) H Immature Granulocyte % (Auto) 0.3 % (0-1) Neutrophils (%) (Auto) 52.3 % (40.0-77.0) Lymphocytes (%) (Auto) 37.2 % (21.0-51.0) Monocytes (%) (Auto) 6.1 % (3.0-13.0) Eosinophils (%) (Auto) 3.3 % (0.0-8.0) Basophils (%) (Auto) 0.8 % (0.0-5.0) Neutrophils # (Auto) 4.9 K/uL (1.8-7.7) Lymphocytes # (Auto) 3.5 K/uL (1.0-4.8) Monocytes # (Auto) 0.6 K/uL (0.1-1.0) Eosinophils # (Auto) 0.31 K/uL (0.00-0.70) Basophils # (Auto) 0.07 K/uL (0.00-0.20) Absolute Immature Granulocyte (auto 0.03 K/uL (0-1) Nucleated Red Blood Cells 0.0 % (0.0-0.19) Sodium Level 138 mmol/L (136-145) 140 mmol/L (136-145) Potassium Level 5.6 mmol/L (3.5-5.1) H 4.1 mmol/L (3.5-5.1) Chloride Level 101 mmol/L (101-111) 105 mmol/L (101-111) Carbon Dioxide Level 33 mmol/L (21-32) H 33 mmol/L (21-32) H Blood Urea Nitrogen 21 mg/dL (7-18) H 20 mg/dL (7-18) H Creatinine 0.9 mg/dL (0.5-1.0) 0.8 mg/dL (0.5-1.0) Glomerular Filtration Rate Calc 67 mL/min (>90) 77 mL/min (>90) Random Glucose 169 mg/dL (70-105) H 111 mg/dL (70-105) H Total Calcium 9.5 mg/dL (8.5-10.1) 9.2 mg/dL (8.5-10.1) Total Bilirubin 0.5 mg/dL (0.2-1.0) Direct Bilirubin < 0.1 mg/dL (0.0-0.3) Aspartate Amino Transf (AST/SGOT) 57 U/L (10-37) H Alanine Aminotransferase (ALT/SGPT) 16 U/L (12-78) Alkaline Phosphatase 84 U/L (50-136) Total Creatine Kinase 174 U/L (21-232) Troponin I High Sensitivity 11.9 ng/L (4-50) B-Type Natriuretic Peptide 90 pg/mL (0-100) Total Protein 8.0 g/dL (6.0-8.3) Albumin 3.1 g/dL (3.5-5.0) L Procalcitonin < 0.05 ng/mL (0.05-0.5) L Influenza Type A Antigen Negative For Type A Influenza Type B Antigen Negative For Type B SARS-CoV-2 Antigen (Rapid) PRESUMPTIVE NEGATIVE Troponin I < 0.05 ng/mL (0.00-0.05) Labs Reviewed?: Yes MDM Patient comes in with a complaint of chest pain and she points to her left inframammary and supra mammary region show of her chest. I can reproduce chest wall tenderness by physical exam. Patient has also been diagnosed with COVID in the last three days. Patient's daughter is wondering if it is simply chest wall tenderness from coughing, which certainly is in the differential diagnosis. A chest x-ray that we have obtained of the patient is negative for consolidation or fluid. We plan to repeat the COVID test. In addition we will get cardiac enzymes as well as procalcitonin and a CBC and influenza test and a BMP. And BMP came back with the hyperkalemia and I am repeating it. EKG was negative for ischemic changes. Repeat BMP showed a normal potassium of 4.1. The patient was feeling much better and would like to go home. To remainder of her workup is negative no signs of COVID or influenza no signs of bacterial infection. ED Course Orders Procedure Category Date Status Time Vital Signs Per CPOE 12/07/24 Transmitted Routine 00:27 B-Type Natriuretic LAB 12/07/24 Complete Peptide 00:27 Chest 1vw RAD 12/07/24 Taken 00:27 12 Lead Ekg Tracing- EKG 12/07/24 Complete Technical 00:27 Oxygen By Nc/Pulse Ox CPOE 12/07/24 Transmitted 00:27 Maintain Iv CPOE 12/07/24 Transmitted 00:27 Iv Insertion CPOE 12/07/24 Transmitted 00:27 Cardiac Monitoring CPOE 12/07/24 Transmitted 00:27 Pulse Oximetry With CPOE 12/07/24 Transmitted Vs And Prn 00:27 Cbc With Differential LAB 12/07/24 Complete 00:27 Activity: Br W/Brp CPOE 12/07/24 Transmitted With Assist 00:27 Urinalysis Profile LAB 12/07/24 Logged 00:27 Troponin Poc Order LAB 12/07/24 Complete Only 00:27 Bedside Troponin-I LAB.ER 12/07/24 In Process (Poc) 00:27 Basic Metabolic Panel LAB 12/07/24 Complete 00:27 Cardiac Panel LAB 12/07/24 Complete 00:33 Covid19 (Sars Antigen LAB 12/07/24 Complete Rapid) 01:20 Influenza Type A & B, LAB 12/07/24 Complete Rapid 01:20 12 Lead Ekg Tracing- EKG 12/07/24 Logged Technical 01:31 0.9% Nacl 500ml PHA 12/07/24 Complete Iv.Soln (Ns 500ml 02:00 Procalcitonin LAB 12/07/24 Complete 01:33 Hepatic Function Panel LAB 12/07/24 Complete 00:33 Basic Metabolic Panel LAB 12/07/24 Complete 03:50 Current Medications Medications (Trade) Dose Ordered Sig/Haja Route PRN Reason Start Time Stop Time Status Last Admin Dose Admin Sodium Chloride 500 ml @ 0 mls/hr ONCE ONCE IV 12/07/24 02:00 12/07/24 02:01 DC 12/07/24 03:03 Vital Signs Date Time Temp Pulse Resp B/P (MAP) Pulse Ox O2 Delivery O2 Flow Rate FiO2 12/07/24 04:02 57 16 144/49 97 Room Air* 0 12/07/24 03:07 59 16 150/58 99 Room Air* 0 12/07/24 02:22 56 18 150/55 98 Room Air* 0 12/07/24 01:21 56 18 139/45 98 Room Air* 0 12/07/24 00:27 97.3 Room Air DX & DISP Disposition: Discharge Departure Impression: Primary Impression: URI (upper respiratory infection) Condition: Stable Referrals: HYACINTH,CHIVO S M.D. (PCP) ARLET BURKS MD Dec 07, 2024 01:52
[2024-12-07 02:00] LABS: COVID19 (SARS ANTIGEN RAPID) PRESUMPTIVE NEGATIVE (NEGATIVE); INFLUENZA TYPE A Negative For Type A (NEGATIVE); INFLUENZA TYPE B Negative For Type B (NEGATIVE)
[2024-12-07 03:02] LABS: ALBUMIN 3.1 g/dL (3.5-5.0); BILIRUBIN,DIRECT < 0.1 mg/dL (0.0-0.3); BILIRUBIN,TOTAL 0.5 mg/dL (0.2-1.0)
[2024-12-07] MEDS: 0.9% NACL 500ML IV.SOLN 500 ML IV ONE (03:03)
[2024-12-07 03:22] LABS: ASPARTATE AMINOTRANSFERASE 57 U/L (10-37)
[2024-12-07 03:44] LABS: ALANINE AMINOTRANSFERASE 16 U/L (12-78)
[2024-12-07 04:02] VITALS: BP 144/49; PULSE 57; RESP 16; O2SAT 97
--- NOTE | 2024-12-07 04:13 | EKG ---
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
[2024-12-07 04:14] LABS: CREATININE 0.8 mg/dL (0.5-1.0); POTASSIUM 4.1 mmol/L (3.5-5.1)
--- NOTE | 2024-12-07 08:12 | HMCIMG ---
PORTABLE CHEST RADIOGRAPH INDICATION: CHEST PAIN COMPARISON: None FINDINGS: classroom monitor leads overlie the field of view. Heart size is normal. Mild calcific plaque is present along the aortic arch mcginnis. The pulmonary vascularity and carmen appear normal. No abnormal pulmonary parenchymal opacity or consolidation identified. No significant pleural effusion noted. No pneumothorax detected. IMPRESSION: No radiographic evidence for any acute cardiopulmonary process.
== END 2024-12-07 04:54 | disposition home or self-care (01) ==
LOC: EDH 00:26
DX: J06.9 Acute upper respiratory infection, unspecified (principal); E11.9 Type 2 diabetes mellitus without complications; I10 Essential (primary) hypertension; Z79.4 Long term (current) use of insulin; Z79.899 Other long term (current) drug therapy; Z86.16 Personal history of COVID-19; Z20.822 Contact with and (suspected) exposure to COVID-19
CPT/HCPCS: 99285; 71045; 87426; 82550; 80076; 84484 ×2; 80048 ×2; 83880; 85025; 87804 ×2; 36415; 93005; 84145; J7040